=== PATIENT | female | born 1950 | race Caucasian/White ===

== ENCOUNTER 2022-02-07 23:01 | Observation (INO) | payer MEDICARE ==
[~2022-02-07] VITALS: Ht 162.6 cm; Wt 74.8 kg
[2022-02-08 02:06] LABS: HEMOGLOBIN 13.5 gm/dl (12.3-15.3); RED BLOOD COUNT 4.28 M/UL (4.00-5.10)
[2022-02-08 02:24] LABS: BUN/CREATININE RATIO 20 (0-10)
[2022-02-08] MEDS ORDERED: TYLOPHEN500 MG PO ×2 (11:50→11:58)
[2022-02-08] MEDS ORDERED: LEVOTHYROXINE100 MCG PO ×2 (11:50→12:16)
[2022-02-08] MEDS ORDERED: CARVEDILOL12.5 MG PO (11:50)
[2022-02-08] MEDS ORDERED: ROXICODONE TAB 55 MG PO (11:58)
[2022-02-08] MEDS ORDERED: VISTARIL25 MG PO (12:13)
[2022-02-08] MEDS ORDERED: AZELASTINE HCL6 ML OU (12:14)
[2022-02-08] MEDS ORDERED: HYZAAR 100-12.1 EACH PO (12:14)
[2022-02-08] MEDS ORDERED: LEVOTHYROXINE88 MCG PO (12:16)
[2022-02-08] MEDS ORDERED: AMLODIPINE BESYL5 MG PO (12:17)
--- NOTE | 2022-02-08 18:13 | NUR ---
CALLED INTERNAL SPECIALIST TO INFORM HIM THAT PATIENT WAS ONLY WAITING ON PT TO WALK HER BEFORE DISCHARGE. [facility] NOTIFIED PT AND THEY SAID THEY WOULD COME SEE THE PATIENT.
[2022-02-09 04:06] LABS: HEMOGLOBIN 12.4 gm/dl (12.3-15.3); RED BLOOD COUNT 3.97 M/UL (4.00-5.10)
[2022-02-09 04:11] LABS: WHITE BLOOD COUNT 9.4 K/UL (4.5-11.0)
[2022-02-09 04:38] LABS: BUN/CREATININE RATIO 13 (0-10)
== END 2022-02-09 20:25 | disposition home or self-care (01) ==
LOC: ER1 23:01 → CDU 02-08 02:41 → CCU 02-08 02:41 → CDU 02-08 02:41 → CCU 02-08 05:42
PROVIDERS: Family Medicine; Internal Medicine; ADMIT Internal Medicine
DX: S32.592A Other specified fracture of left pubis, initial encounter for closed fracture (principal); E87.6 Hypokalemia; E87.1 Hypo-osmolality and hyponatremia; D72.829 Elevated white blood cell count, unspecified; I10 Essential (primary) hypertension; E03.9 Hypothyroidism, unspecified; Z88.2 Allergy status to sulfonamides; Z91.041 Radiographic dye allergy status; Z79.890 Hormone replacement therapy; Z79.899 Other long term (current) drug therapy; W10.9XXA Fall (on) (from) unspecified stairs and steps, initial encounter; Y93.89 Activity, other specified
CPT/HCPCS: 36415; 70450; 72192; 73502; 73721; 80048; 80053; 82533; 83735; 84439; 84443; 85025; 85610; 96372; 97161; 97530-GP-CQ; 99285; G0378; G0480; J1650